=== PATIENT | male | born 1955 | race Caucasian/White ===

== ENCOUNTER 2022-07-07 05:27 | Day surgery (SDC) | payer MEDICARE ==
[2022-07-07] VITALS (9 sets, daily range): BP systolic 127–148; BP diastolic 59–72; PULSE 55–67; TEMP 97–97.9
[~2022-07-07] VITALS: Ht 170.2 cm; Wt 102.9 kg
[2022-07-07] MEDS ORDERED: LIPITOR 10MG10 MG PO (06:07)
[2022-07-07] MEDS ORDERED: PRINIVIL5 MG PO (06:07)
[2022-07-07] MEDS ORDERED: CEPHALEXIN500 M1 PO (08:41)
[2022-07-07] MEDS ORDERED: NORCO 325 MG-51 TAB PO (08:41)
--- NOTE | 2022-07-07 09:10 | NUR ---
PATIENT ARRIVED BACK TO BAY 8 WITH PACU NURSE. PATIENT ALERT AND ORIENTED, DENIES PAIN AND NAUSEA. BREATHING REGULAR AND UNLABORED. PATIENT ON 2L VIA NASAL CANNULA. PATIENT INSTRUCTED TO COUGH AND DEEP BREATHE. NURSE HANDOFF COMPLETED IN ROOM. MICROFOAM DRESSING PRESENT TO RIGHT SHOULDER, DRESSING CLEAN, DRY AND INTACT. RIGHT ARM IN SLING WITH ICE PACK PRESENT OVER RIGHT SHOULDER. CAPILLARY REFILL TO RIGHT HAND <3 SECONDS. RIGHT HAND WARM AND DRY. PATIENT SPOUSE, ESPINOZA, PRESENT IN ROOM. PATIENT HAD APPLE JUICE AND APPLESAUCE, BOTH TOLERATED WELL. CALL LIGHT IN REACH.
--- NOTE | 2022-07-07 10:10 | NUR ---
PATIENT AMBULATED TO RESTROOM WITH STEADY GAIT AND VOIDED WITHOUT DIFFICULTY. DENIES PAIN AND NAUSEA. DISCHARGE TEACHING COMPLETED WITH PRINTED EDUCATION AND INSTRUCTIONS SENT HOME WITH PATIENT. PATIENT AND SPOUSE INSTRUCTED TO CALL AND MAKE FOLLOW UP APPOINTMENT TO BE SEEN BY IN [place]. PATIENT AND SPOUSE VERBALIZED UNDERSTANDING OF TEACHING. IV REMOVED. PATIENT CHANGED INTO PERSONAL CLOTHING AND WAS DISCHARGED HOME WITH SPOUSE, ESPINOZA, TRANSPORT.
== END 2022-07-07 10:50 | disposition home or self-care (01) ==
LOC: SDCO 05:27
DX: M19.011 Primary osteoarthritis, right shoulder (principal); M75.111 Incomplete rotator cuff tear or rupture of right shoulder, not specified as traumatic; M67.813 Other specified disorders of tendon, right shoulder; I10 Essential (primary) hypertension; G47.33 Obstructive sleep apnea (adult) (pediatric); F17.290 Nicotine dependence, other tobacco product, uncomplicated; Z99.81 Dependence on supplemental oxygen
CPT/HCPCS: A4619; J0171; J0690; J1100; J2250; J2405; J2704; J2795; J3010; J7120

== ENCOUNTER 2023-07-06 05:22 | Day surgery (SDC) | payer MEDICARE ==
[2023-07-06] VITALS (13 sets, daily range): BP systolic 111–160; BP diastolic 55–72; PULSE 53–75; TEMP 97.9–98.5
[~2023-07-06] VITALS: Ht 170.2 cm; Wt 102.6 kg
[~2023-07-06 05:22] MED LIST: CEPHALEXIN500 M1 PO; LIPITOR 10MG10 MG PO; LR 1,000 ML IV SCH; NORCO 325 MG-51 TAB PO; PRINIVIL5 MG PO
[2023-07-06] MEDS ORDERED: Tranexamic Acid 1,000 MG/10 ML VIAL ONE ×2 (06:32→06:34)
[2023-07-06] MEDS ORDERED: PRINIVIL10 MG PO (06:39)
[2023-07-06] MEDS ORDERED: Glycopyrrolate 0.2 MG/ML 1 ML VIAL ONE (06:41)
[2023-07-06] MEDS ORDERED: dexAMETHasone 10 MG/ML VIAL ONE (06:41)
[2023-07-06] MEDS ORDERED: NS 10 ML IV ONE (06:41)
[2023-07-06] MEDS ORDERED: Ondansetron 4 MG/2 ML VIAL ONE (06:41)
[2023-07-06] MEDS ORDERED: Lidocaine PF 2% (20 MG/ML) 5 ML VIAL ONE (06:45)
[2023-07-06] MEDS ORDERED: Midazolam 2 MG/2 ML VIAL ONE (06:46)
[2023-07-06] MEDS ORDERED: fentaNYL 50 MCG/ML 2 ML VIAL ONE (06:46)
[2023-07-06] MEDS ORDERED: Thrombin Human (Recombinant) 5,000 UNITS VIAL TP ONE (07:41)
[2023-07-06] MEDS ORDERED: Morphine 4 MG/ML VIAL SQ ONE (07:41)
[2023-07-06] MEDS ORDERED: Ketorolac 30 MG/ML VIAL IM ONE (07:41)
[2023-07-06] MEDS ORDERED: Gentamicin 80 MG/50 ML IV.SOLN IR ONE (07:41)
[2023-07-06] MEDS ORDERED: hydrALAZINE 20 MG/ML 1 ML VIAL IV PRN (08:15)
[2023-07-06] MEDS ORDERED: Ondansetron 4 MG/2 ML VIAL IV PRN ×2 (08:15→09:15)
[2023-07-06] MEDS ORDERED: droPERidol 2.5 MG/ML 2 ML VIAL IV PRN (08:15)
[2023-07-06] MEDS ORDERED: fentaNYL 50 MCG/ML 2 ML VIAL IV PRN ×2 (08:15)
[2023-07-06] MEDS ORDERED: Mag/Al Hydrox/Simeth Susp 30 ML CUP PO PRN (09:15)
[2023-07-06] MEDS ORDERED: Morphine 4 MG/ML VIAL IV PRN (09:15)
[2023-07-06] MEDS ORDERED: Acetaminophen 500 MG TAB PO PRN (09:15)
[2023-07-06] MEDS ORDERED: NS 1,000 ML IV SCH (09:15)
[2023-07-06] MEDS ORDERED: Magnes Hydrox (MOM) 80 MG/ML 30 ML CUP PO PRN (09:15)
[2023-07-06] MEDS ORDERED: Bisacodyl 5 MG TAB PO PRN (09:15)
[2023-07-06] MEDS ORDERED: Naloxone 0.4 MG/ML VIAL IV PRN (09:15)
[2023-07-06] MEDS ORDERED: oxyCODONE 5 MG TAB PO PRN ×2 (09:15→12:30)
--- NOTE | 2023-07-06 10:30 | NUR ---
PATIENT UP TO FLOOR AT APPROXIMATELY 0950. POST OP VITALS RUNNING. PATIENT TOLERATING PO, NO N/V. ICE PACK TO LEFT KNEE. PATIENT REPORTS MILD PAIN, MEDICATION ADMINISTERED. PATIENT TOLERATING PO. ASSESSMENT PERFORMED. SCHEDULED MEDICATIONS ADMINISTERED. NO FURTHER NEEDS. CALL LIGHT IN REACH.
[2023-07-06] MEDS ORDERED: Acetaminophen 500 MG TAB PO SCH (12:00)
--- NOTE | 2023-07-06 13:30 | NUR ---
PATIENT UNABLE TO VOID DESPITE SEVERAL ATTEMPTS TO AMBULATE, GRINDER OPERATOR BATHROOM. BLADDER SCAN REVEALED >740ML. STRAIGHT CATH EMPTIED 825ML FROM BLADDER. PATIENT ENCOURAGED TO INCREASE FLUIDS, AMBULATE AND OBTAIN BATHROOM SCHEDULE.
[2023-07-06] MEDS ORDERED: Ketorolac 15 MG/ML VIAL IV SCH (15:00)
[2023-07-06] MEDS ORDERED: ceFAZolin 2 G in Water For Injection,Sterile 20 ML IV SCH (17:00)
--- NOTE | 2023-07-06 19:30 | NUR ---
PT HAS BEEN ABLE TO VOID IN BATHROOM SEVERAL TIMES SINCE BEING STRAIGHT CATHED.
--- NOTE | 2023-07-06 20:54 | NUR ---
PT IN BED, REPORTS VOIDING WITHOUT PROBLEM. HAS INT TO LT HAND. REPORTS PAIN 3/10 TO LT KNEE. DRSG D/I. ICE PACK REPLACED. CPAP SETUP AT BEDSIDE.
[2023-07-06] MEDS ORDERED: Atorvastatin 10 MG TAB PO SCH (21:00)
[2023-07-06] MEDS ORDERED: Ascorbic Acid 500 MG TAB PO SCH (21:00)
[2023-07-06] MEDS ORDERED: Sennosides/Docusate 8.6-50 MG TAB PO SCH (21:00)
--- NOTE | 2023-07-06 23:00 | NUR ---
ASSISTED TO BATHROOM WITH SBA AND WALKER, VOIDS AND BACK TO BED.
[2023-07-07] VITALS (7 sets, daily range): BP systolic 130–157; BP diastolic 74–83; PULSE 60–62; TEMP 97.9
--- NOTE | 2023-07-07 01:00 | NUR ---
IV ANTIBIOTIC GIVEN, OXYCODONE 5MG PO FOR LT KNEE PAIN.
--- NOTE | 2023-07-07 05:50 | NUR ---
SCHEDULED AM MED GIVEN. DENIES NEED FOR STRONGER PAIN MEDS AT THIS TIME.
[2023-07-07] MEDS ORDERED: Lisinopril 10 MG TAB PO SCH (09:00)
[2023-07-07] MEDS ORDERED: Magnes Hydrox (MOM) 80 MG/ML 30 ML CUP PO SCH (09:00)
[2023-07-07] MEDS ORDERED: Rivaroxaban 10 MG TAB PO SCH (09:00)
--- NOTE | 2023-07-07 09:57 | NUR ---
Cardiovascular Operating Room Nurse met with patient to discuss discharge planning. Patient lives [place] of [place] with his , Sujey (ph#[phone]) and sees Dr. Del Dotson in [place] for primary care. Patient obtains medications from [facility] in [place] with no difficulties. Patient does not normally require DME but advised he has walkers, crutches, and wheelchairs available at home that belonged to his parents. Patient has outpatient PT set up at [facility]. Patient advised his , Sujey is his DPOA-HC. Discharge Plan: Home
--- NOTE | 2023-07-07 10:18 | NUR ---
PATIENT ALERT AND ORIENTED X4. VSS. PATIENT HERE FOR LEFT UNICONDYLAR LATERAL KNEE REPLACEMENT. DRESSING INTACT. PATIENT REPORTS MILD PAIN, DENIES NEED FOR PAIN MEDICATION TH IS MORNING. IV TO LEFT HAND INT AND FLUSHES WELL. PATIENT RESTING IN CHAIR, TOLERATING PO. DENIES N/V. NO FURTHER NEEDS. CALL LIGHT IN REACH.
[2023-07-07 12:22] LABS: BASO % 0.2 % (0.0-2.0); EOS % 0.3 % (0.0-4.0); GRAN # 9.9 K/mm3 (1.4-6.5); GRAN % 78.1 % (42.2-75.2); HEMATOCRIT 40.8 % (42.0-52.0); HEMOGLOBIN 13.7 g/dl (13.5-18.0); LYMPH # 1.4 K/mm3 (1.2-3.4); LYMPH % 10.7 % (20.0-51.0); MEAN CELL VOLUME 90 fl (80.0-100.0); MEAN CORPUSCULAR HEMOGLOBIN 30 pg (27-31); MEAN CORPUSCULAR HGB CONC 34 g/dl (33.0-37.0); MEAN PLATELET VOLUME 9.7 fl (7.4-10.4); MONO # 1.3 K/mm3 (0.1-0.6); MONO % 10.1 % (1.7-9.3); PLATELET COUNT 190 K/mm3 (130-400); RED BLOOD COUNT 4.53 M/mm3 (4.20-5.60)
[2023-07-07 12:40] LABS: CALCIUM 9.1 mg/dL (8.4-10.2); CREATININE, serum 0.94 mg/dL (0.72-1.25); POTASSIUM 3.7 mmol/L (3.5-4.5)
[2023-07-07] MEDS ORDERED: ASPI325T6 PO (15:32)
[2023-07-07] MEDS ORDERED: PERCOCET 325 MG1 TA2 PO (15:33)
[2023-07-07] MEDS ORDERED: CELEBREX 200MG200 MG PO (15:34)
--- NOTE | 2023-07-07 17:50 | NUR ---
DISCHARGE INSTRUCTIONS PROVIDED. PATIENT EDUCATION GIVEN. IV DC'D. FOLLOW UP APPOINTMENT DISCUSSED. MEDICATIONS REVIEWED. PATIENT DENIES ANY QUESTIONS OR CONCERNS. PATIENT ESCORTED OUT VIA WHEELCHAIR.
[2023-07-10] MEDS ORDERED: Celecoxib 200 MG CAP PO SCH (21:00)
== END 2023-07-07 17:50 | disposition home or self-care (01) ==
LOC: SDCO 05:22 → SURG 09:53 → SDCO 13:05
PROVIDERS: Physician Assistant
DX: M17.12 Unilateral primary osteoarthritis, left knee (principal); I10 Essential (primary) hypertension; E78.5 Hyperlipidemia, unspecified; D72.829 Elevated white blood cell count, unspecified; G47.33 Obstructive sleep apnea (adult) (pediatric); F17.220 Nicotine dependence, chewing tobacco, uncomplicated; Z79.899 Other long term (current) drug therapy
CPT/HCPCS: OP; A9284; C1713; C1776; J0690; J1100; J1580; J1885; J2250; J2270; J2405; J2598; J2704; J2795; J3010; J7030; J7120